=== PATIENT | female | born 1980 | race Caucasian/White ===

== ENCOUNTER → 2022-12-28 | Outpatient (CLI) | payer OTHER, SELFPAY ==
[2023-01-02 09:09] LABS: HPV APTIMA, High Risk Negative (Negative)
== END | disposition home or self-care (01) ==
LOC: LABSPEC 16:00
PROVIDERS: PCP Family Medicine; Referring Provider Obstetrics & Gynecology; Visit Provider Obstetrics & Gynecology
DX: Z12.4 Encounter for screening for malignant neoplasm of cervix (principal)
CPT/HCPCS: 87624; 88175; G0145

== ENCOUNTER → 2023-01-01 | Outpatient (CLI) | payer OTHER, SELFPAY ==
--- NOTE | 2023-01-01 13:01 | US_ITS ---
STUDY: ULTRASOUND OF THE FEMALE PELVIS - LIMITED REASON FOR EXAM: Female, 42 years old abnormal bleeding TECHNIQUE: Transabdominal and Transvaginal TECHNICAL QUALITY: Adequate. COMPARISON: None. FINDINGS: The uterus is anteverted and is in a midline position. The uterus measures 9.1 x 5.8 x 4.3 cm. Normal uterine cervix. The endometrium measures between 4.9 and 5.5 mm in thickness, and is hyperechoic. There is no demonstrated endometrial mass. Seat Joiner notes at least one fibroid measuring 1.9 cm. There may be other fibroids but with the interface artifact, accurate measurements of any other fibroid could not be obtained. The right ovary measures 3.8 x 1.9 x 1.7 cm. There is a simple 1.3 cm cyst. . There is normal arterial and normal venous vascularity. The left ovary measures 2.9 x 2.3 x 1.6 cm. There is no left ovarian cyst or ovarian mass. There is no visualized left adnexal mass or complex lesion. There is normal arterial and normal venous vascularity. There is no fluid in the cul-de-sac. Bladder is sonographically normal US/Pelvic (Non ) IMPRESSION: Small uterine fibroid, otherwise unremarkable uterus, no suspicious endometrial abnormalities identified. Simple right ovarian cyst, no specific follow-up needed Electronically Signed: Barrett Valdez MD at 15:38 EDT ,
--- NOTE | 2023-01-01 13:01 | US_ITS ---
STUDY: ULTRASOUND OF THE FEMALE PELVIS - LIMITED REASON FOR EXAM: Female, 42 years old abnormal bleeding TECHNIQUE: Transabdominal and Transvaginal TECHNICAL QUALITY: Adequate. COMPARISON: None. FINDINGS: The uterus is anteverted and is in a midline position. The uterus measures 9.1 x 5.8 x 4.3 cm. Normal uterine cervix. The endometrium measures between 4.9 and 5.5 mm in thickness, and is hyperechoic. There is no demonstrated endometrial mass. Power Brake Rebuilder notes at least one fibroid measuring 1.9 cm. There may be other fibroids but with the interface artifact, accurate measurements of any other fibroid could not be obtained. The right ovary measures 3.8 x 1.9 x 1.7 cm. There is a simple 1.3 cm cyst. . There is normal arterial and normal venous vascularity. The left ovary measures 2.9 x 2.3 x 1.6 cm. There is no left ovarian cyst or ovarian mass. There is no visualized left adnexal mass or complex lesion. There is normal arterial and normal venous vascularity. There is no fluid in the cul-de-sac. Bladder is sonographically normal US/Transvaginal Non- IMPRESSION: Small uterine fibroid, otherwise unremarkable uterus, no suspicious endometrial abnormalities identified. Simple right ovarian cyst, no specific follow-up needed Electronically Signed: Barrett Valdez MD at 15:38 EDT ,
[2023-01-01 13:54] LABS: Absolute Lymphocyte Count 3.05 X10^3/uL (0.83-4.51); Absolute Neutrophil Count 4.7 X10^3/uL (2.0-7.7); Basophil# 0.08 X10^3/uL; Eosinophil# 0.07 X10^3/uL; Eosinophils% 0.8 % (0-5); Hematocrit 40.4 % (37-47); Hemoglobin 13.9 g/dL (12.0-15.0); Lymphocyte # 3.05 X10^3/ul (0.83-4.51); Lymphocyte % 36.3 % (19-41); Mean Corp Hgb Conc 34.4 g/dL (32-36); Mean Corpuscular Hgb 30.4 pg (27.0-32.0); Mean Corpuscular Volume 88.4 fL (81-99); Mean Platelet Vol. 9.8 fl (6.2-12.0); Monocyte# 0.51 X10^3/uL; Monocyte% 6.1 % (0-10); NRBC Flagged by Analyzer 0 % (0-5); Neutrophil # 4.67 X10^3/uL (2.7-7.7); Neutrophil % 55.4 % (47-70); Platelet Count 410 K/mm3 (150-450); RBC Distribution Width CV 12.7 % (11.6-14.6); RBC Distribution Width SD 41.2 fl (35.1-43.9); Red Blood Count 4.57 M/mm3 (4.2-5.4); White Blood Count 8.4 K/mm3 (4.4-11.0)
[2023-01-01 14:32] LABS: Thyroid Stim Hormone (TSH) 2.82 uIU/mL (0.358-3.74)
== END | disposition home or self-care (01) ==
PROVIDERS: PCP Family Medicine; Referring Provider Obstetrics & Gynecology; Visit Provider Obstetrics & Gynecology
DX: N93.9 Abnormal uterine and vaginal bleeding, unspecified (principal)
CPT/HCPCS: 36415; 76830; 76856; 84443; 85025

== ENCOUNTER → 2023-01-16 | Outpatient (CLI) | payer OTHER, SELFPAY ==
--- NOTE | 2023-01-16 | EMB_PTH ---
PATIENT: FRIDA TORRE LOC: [facility] U#:[id number] AGE/SX: 42/F ROOM: RE01/16/[address]: Dr. Yolis Dyer DO : 1980 BED: DIS: 01/16/2023 SPEC #: [id number] RECD: 01/16/23 16:21 STATUS: WAYNE REDaria #: [id number] JASWANT: 01/16/23 00:[address]: Yolis Dyer DEPT: SURGICAL PATHOLOGY RECD BY: Ramirez Bonilla ENTERED: 01/17/23 09:17 SP TYPE: ENDOM BX/C REINA DR: Dr. Paul Moreira MD Tissues: Endometrium, NOS Procedures: Surgery Specimen Level IV HEADER OPERATION: Endometrial biopsy PRE-OP DIAGNOSIS: Abnormal uterine bleeding TISSUE SUBMITTED: Endometrial lining MICROSCOPIC DIAGNOSIS Endometrium, biopsy: Mildly disordered, weakly proliferative endometrium. Rare fragment of squamous metaplastic epithelium. AM:karolyn 01/18/2023 MICROSCOPIC DESCRIPTION Slides are reviewed. GROSS DESCRIPTION Received is one container labeled with the patient's name and not further designated. The specimen consists of light rajput mucoid material aggregating to 1.5 x 0.6 x <0.1 cm. The specimen is totally submitted in one cassette. / AM:karolyn 01/17/2023 TC:5 CPT: 35134
== END | disposition home or self-care (01) ==
LOC: LABSPEC 16:45
PROVIDERS: PCP Family Medicine; Referring Provider Obstetrics & Gynecology; Visit Provider Obstetrics & Gynecology
DX: N93.9 Abnormal uterine and vaginal bleeding, unspecified (principal)
CPT/HCPCS: 88305

== ENCOUNTER 2023-03-06 08:44 | Day surgery (SDC) | payer OTHER, SELFPAY ==
--- NOTE | 2023-02-22 10:37 | EKG12_ITS ---
Test Reason : PRE-OP Blood Pressure : / mmHG Vent. Rate : 065 BPM Atrial Rate : 065 BPM P-R Int : 182 ms QRS Dur : 086 ms QT Int : 424 ms P-R-T Axes : 065 032 049 degrees QTc Int : 440 ms Normal sinus rhythm Possible Left atrial enlargement Borderline ECG Confirmed by FABIENNE BELL, TROY ([id number]), assignment desk editor FANNY ONEAL ([id number]) on 02/23/2023 9:12:37 AM Referred By: Yolis Dyer Confirmed By:TROY LOVING MD
[2023-02-22 11:38] LABS: Partial Thromboplast Time 27.2 Seconds (24.1-36.2); Prothrombin Time (Protime)PT. 13.1 SECONDS (11.7-14.9)
[2023-02-22 12:00] LABS: AST(SGOT) 15 U/L (15-37); Alanine Aminotransfer ALT/SGPT 21 U/L (13-56); Albumin, Serum 3.6 g/dL (3.2-5.0); Alkaline Phosphatase 72 U/L (45-117); Anion Gap 5 (5-15); BUN 9 mg/dL (7-18); BUN/Creat Ratio 9.6 RATIO (10-20); Bilirubin, Direct 0.13 mg/dL (0.00-0.30); Calcium,Total 8.8 mg/dL (8.5-10.1); Chloride 104 mmol/L (98-107); Creatinine, Serum 0.94 mg/dL (0.55-1.02); EST Glomerular Filtration Rate 69 mL/min (>60); Est Glom Filt Rate - Afr Amer 83 mL/min (>60); Globulin 3.6 g/dL (2.2-4.2); Glucose 77 mg/dL (74-106); Magnesium 2.5 mg/dL (1.6-2.6); Potassium 3.3 mmol/L (3.5-5.1); Protein, Total 7.2 g/dL (6.4-8.2); Sodium Level 139 mmol/L (136-145)
[2023-03-06] VITALS (17 sets, daily range): BP systolic 109–138; BP diastolic 60–89; PULSE 54–102; RESP 15–95; TEMP 36.1–37.1; O2SAT 95–100; BMI 34.0
[2023-03-06] MEDS: Magnesium 1 GM over 15 mins IV (09:00)
[2023-03-06 09:26] LABS: Bedside Glucose 130 mg/dL (74-106)
[2023-03-06] MEDS: Lactated Ringers 1,000 ML 40 ML IV ×2 (09:34→11:31)
[2023-03-06] MEDS: dexAMETHasone 4 MG/ML Vial 8 MG IV (09:37)
[2023-03-06] MEDS: Phenazopyridine 95 MG Tablet 190 MG PO (09:38)
[2023-03-06] MEDS: Gabapentin 600 MG Tablet PO (09:39)
[2023-03-06] MEDS: Acetaminophen 500 MG Tablet 1000 MG PO ×3 (09:39→23:16)
[2023-03-06] MEDS: Celecoxib 200 MG Capsule 400 MG PO (09:39)
--- NOTE | 2023-03-06 09:39 | PCM.HP.BLA ---
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: No Is patient in pain?: No Allergies No Known Allergies Allergy (Verified 02/21/23 16:02) Medications buspirone 15 mg tablet 15 mg PO BID 12/12/22 [History Confirmed 02/21/23] hydrochlorothiazide 50 mg tablet 50 mg PO DAILY 12/12/22 [History Confirmed 02/21/23] magnesium oxide 500 mg capsule 500 mg PO DAILY 12/12/22 [History Confirmed 02/21/23] metoprolol succinate 100 mg tablet,extended release 24 hr 100 mg PO DAILY 12/12/22 [History Confirmed 02/21/23] naltrexone 8 mg-bupropion 90 mg tablet,extended release (Contrave) 2 tab PO BID 12/12/22 [History Confirmed 02/21/23] psyllium husk 0.4 gram capsule (Daily Fiber) 0.4 g PO DAILY 12/12/22 [History Confirmed 02/21/23] rosuvastatin 5 mg tablet (Crestor) 5 mg PO DAILY 12/12/22 [History Confirmed 02/21/23] melatonin 12 mg tablet 12 mg PO QHS 02/20/23 [History Confirmed 02/21/23] zolpidem 12.5 mg tablet,extended release,multiphase (Ambien CR) 12.5 mg PO QHS PRN insomnia 02/20/23 [History Confirmed 02/21/23] Post menopausal: No Patient : No : No PFSH Medical History Abnormal mammogram Abnormal Pap smear of cervix Alcohol use Anemia Anxiety Back pain Easy bruising Former smoker High cholesterol Hypertension Migraine headache Normal Holter exam Wears glasses Surgical History S/P breast augmentation S/P endometrial ablation S/P LASIK (laser assisted in situ keratomileusis) S/P left knee surgery S/P removal of ovarian cyst S/P tonsillectomy and adenoidectomy S/P tubal ligation Family History Mother Hypertension Hyperlipidemia CVA (cerebral vascular accident)Father Hypertension Diabetes Hyperlipidemia CVA (cerebral vascular accident)Grandfather COPD (chronic obstructive pulmonary disease) Testicular cancer DiabetesGrandmother Alzheimer disease Social History Smoking Status: Former smoker alcohol intake: current details: occasionally substance use type: does not use caffeine: Yes what type of physical activity do you participate in: walking and weight training frequency: 3-4 times per week seatbelt use: always do you feel safe at home: Yes additional social history: -Art HPI TRH poss. cysto Details: FRIDA TORRE is a 42 year old who presents for a preoperative exam. She is scheduled for a total robotic hysterectomy, bilateral salpingectomy, cystoscopy. The uterus is anteverted and is in a midline position.? The uterus measures 9.1 x 5.8 x 4.3 cm.? Normal uterine cervix.? The endometrium measures between 4.9 and 5.5 mm in thickness, and is hyperechoic.? There is no demonstrated endometrial mass. Motion Graphics Artist notes at least one fibroid measuring 1.9 cm. There may be other fibroids but with the interface artifact, accurate measurements of any other fibroid could not be obtained. The right ovary measures 3.8 x 1.9 x 1.7 cm.? There is a simple 1.3 cm cyst. .? There is normal arterial and normal venous vascularity. The left ovary measures 2.9 x 2.3 x 1.6 cm.? There is no left ovarian cyst or ovarian mass.? There is no visualized left adnexal mass or complex lesion.? There is normal arterial and normal venous vascularity. There is no fluid in the cul-de-sac. Bladder is sonographically normal US/Transvaginal Non- IMPRESSION: Small uterine fibroid, otherwise unremarkable uterus, no suspicious endometrial abnormalities identified. ? Simple right ovarian cyst, no specific follow-up needed She continues to have q 2 week menses that are sometimes with clots. She continues to request hysterectomy for definitive treatment. She had 2 prior vaginal deliveries and BMI of 34 (200lbs). She consents to an EMB was benign. History 2 Elective abortions Hx Para 2 Spontaneous abortions Hx # Term Pregnancies Ectopic pregnancies Hx # Pregnancies Multiple births # of living children Past Pregnancies Del. Date Name GA/Weeks Outcome Route Bth Weight [facility] F[facility] Unknown Jacqueline Unknown Calysta ROS Const ROS Unobtainable: All systems reviewed & are unremarkable except as noted in H Resp Resp: Reports system reviewed and no additional complaints, except as documented; Denies cough GI GI: Reports as per HPI Psych Psych: Reports system reviewed and no additional complaints, except as documented Exam Const General: cooperative, healthy appearing, comfortable and no acute distress Resp Effort & Inspection: normal respiratory effort Skin General: no rashes or lesions noted Psych Appearance: grossly normal Speech and Movement: speech and movement normal Coding Level of Care Code Off vis,est,level 4 Diagnoses Abnormal uterine bleeding N93.9 Assessment and Plan Assessment and Plan (1) Abnormal uterine bleeding: Status: Acute Comment: EMB, benign Plan: After discussing the patient's diagnosis and treatment plan options, patient wishes to proceed with surgical management. I have discussed with the patient the risks, benefits, and alternatives of the procedure which include but are not limited to risks of anesthesia, bleeding, infection, possible damage to bowel, bladder, or surrounding vasculature which could lead to additional surgery to evaluate any complications. Patient agrees to procedure and wishes to proceed. ACOG/uptodate references given for additional information regarding procedure. plan for total robotic hysterectomy, bilateral salpingectomy, cystoscopy.
--- NOTE | 2023-03-06 09:46 | DCINST_ITS ---
Discharge Instructions Diet Discharge Diet: No restrictions Activity May resume sexual activity in: 6 weeks Weight Bearing Status: Full weight bearing Dressing / Incision Call your doctor if your incision/area has: Continuous Slow Oozing, Sudden Increased Bleeding, Increased Pain/ Swelling, Increased Redness and Foul Smelling Discharge Call your doctor if you observe: Fever of 101 or Higher, Using more than 1 pad per hour, Shortness of breath, Chest pain and Uncontrolled pain Suture Line Care: Avoid Pulling/Pushing and Avoid Pinching/Bending Remove Dressing in: 1 week (if present) Cleanse incision/area with: Soap & Water and Keep Dressing Clean & Dry Follow Up Care Please Follow Up With: Yolis Dyer DO When: Call to make an appointment with your doctor for a postop visit in 2 and 6 weeks Test Results: Test results from this visit will be discussed in further detail at your follow- up appointment, if applicable. Discharge Plan Admission Primary Reason for Your Visit: hysterectomy Attending Provider: Yolis Dyer Primary Care Provider: Paul Moreira Discharge Orders/Prescriptions Prescriptions: New ibuprofen 800 mg tablet 800 mg PO Q8H PRN (Reason: pain) Qty: 30 0RF oxycodone-acetaminophen [Percocet] 5-325 mg tablet 1 tab PO Q4H PRN (Reason: pain) 7 Days Qty: 30 0RF Rx Instructions: 1-2 tabs q 4 hrs as needed for pain Continued metoprolol succinate 100 mg tablet extended release 24 hr 100 mg PO DAILY hydrochlorothiazide 50 mg tablet 50 mg PO DAILY rosuvastatin [Crestor] 5 mg tablet 5 mg PO DAILY buspirone 15 mg tablet 15 mg PO BID psyllium husk [Daily Fiber] 0.4 gram capsule 0.4 g PO DAILY magnesium oxide 500 mg capsule 500 mg PO DAILY melatonin 12 mg tablet 12 mg PO QHS zolpidem [Ambien CR] 12.5 mg tablet,ext release multiphase 12.5 mg PO QHS PRN (Reason: insomnia) Held Contrave 8-90 mg tablet extended release 2 tab PO BID Hold Instructions: Resume on 03/14/23. stop taking after surgery and resume when not using percocet Referrals / Follow Up: Paul Moreira MD [Primary Care Provider] - Disposition Disposition (needs filled in before D/C Order can be placed): Home, Self Care
[2023-03-06] MEDS: Cefazolin 2 GM in 0.9% Normal Saline 100 ML IV (10:40)
--- NOTE | 2023-03-06 10:40 | HYST_PTH ---
PATIENT: FRIDA TORRE LOC: [facility] [place] U#:[id number] AGE/SX: 42/F ROOM: RE03/06/[address]: Dr. Yolis Dyer DO : 1980 BED: DIS: 03/07/2023 SPEC #: [id number] RECD: 03/06/23 13:14 STATUS: WAYNE KEVIN #: [id number] JASWANT: 03/06/23 10:[address]: Yolis Dyer DEPT: SURGICAL PATHOLOGY RECD BY: Rosy Goncalves ENTERED: 03/06/23 13:25 SP TYPE: HYSTERECT OTHR DR: Dr. Paul Moreira MD Tissues: Uterus, NOS Procedures: Surgery Specimen Level V HEADER OPERATION: ERAS, lap robotic hysterectomy, cystoscopy PRE-OP DIAGNOSIS: Abnormal uterine bleeding TISSUE SUBMITTED: Cervix, uterus and bilateral fallopian tubes MICROSCOPIC DIAGNOSIS Cervix, uterus, bilateral fallopian tubes, hysterectomy and bilateral salpingectomy: Cervix - chronic cystic cervicitis with squamous metaplasia. Endometrium - secretory endometrium. Myometrium - intramural and subserosal leiomyomas (largest measuring 2.0 cm in greatest dimension. Bilateral fallopian tubes - focal hematosalpinx. SJ:karolyn 03/07/2023 MICROSCOPIC DESCRIPTION Slides are reviewed. GROSS DESCRIPTION Received in fixative is one container labeled with the patient's name and designated cervix, uterus and bilateral fallopian tubes. The specimen consists of a hysterectomy specimen consisting of uterus with cervix and attached bilateral fallopian tubes. The uterus with cervix weighs 107 gm and measures 9.0 x 7.0 x 4.5 cm. A minute subserosal nodule is noted measuring 0.2 cm in greatest dimension. The serosal surface is rajput, glistening. The ectocervical mucosa is unremarkable. The external os is oval and patulous in contour. The endocervical canal measures 3.5 cm in length and the endocervical mucosa is rajput, glistening and unremarkable. Sections of the cervix reveal a few cysts filled with mucoid material. The triangular endometrial cavity measures 4.5 cm in length and 3.0 cm in width. The endometrium is rajput, glistening without any mass lesion and measures 0.1 cm in thickness. The uterine wall measure sup to 2.2 cm in thickness. Sections of the uterine wall reveal two intramural nodular masses measuring 0.4 to 2.0 cm in greatest dimension and one subserosal nodule measuring 0.2 cm in greatest dimension. The right fallopian tube measures 7.0 cm in length and up to 1.0 cm in diameter. The fimbrial end is identified. The fallopian tube is interrupted in the middle consistent with previous tubal occlusion. The proximal portion of fallopian tube shows dilated lumen measuring 0.5 cm in diameter and filled with hemorrhagic fluid. Sections do not reveal any mass lesion. The left fallopian tube is similar appearance to right and measures 6.0 cm in length and 1.0 cm in diameter. Sections of the left fallopian tube also reveal dilated lumen. The proximal portion of the left fallopian tube also shows dilated lumen filled with bloody fluid measuring 0.4 cm in diameter. Disc Sander sections are submitted in nine cassettes as follows: 1??anterior cervix, 2 - posterior cervix, 3 & 4 - anterior uterine wall, 5 & 6 - posterior uterine wall, largest nodular mass, 7 - nodular masses, 8 - right fallopian tube, 9 - left fallopian tube. / SJ:rg 03/06/2023 TC:1 CPT: 91754
[2023-03-06] MEDS: Bupivacaine 0.25% 30 ML Vial (11:16)
[2023-03-06] MEDS: Ondansetron 4 MG/2 ML Vial IV (11:36)
--- NOTE | 2023-03-06 12:37 | OP.PCM_ITS ---
Problems Associated Problem List Diagnoses (1) Abnormal uterine bleeding: Report of Operation Date of Procedure: 03/06/23 Pre-Operative Diagnosis: menorrhagia Post-Operative Diagnosis: menorrhagia Surgery/Procedure Performed:: total robotic hysterectomy, bilateral salpingectomy, cystoscopy Description of Surgical Findings:: normal appearing uterus, fallopian tubes, and some simple appearing cysts on the right ovary measuring less than 1 cm. Positive ureteral jets from ureters on cystoscopy. Surgeon: Yolis Dyer production cloth cutter: Manda Church Type of Anesthesia: General Anesthesiologist: Charles Mcdonald Specimen's removed: uterus, cervix ,bilateral fallopian tubes Drains: noen Estimated Blood Loss (mL): 50cc Description of Procedure: Preoperative diagnosis:[ ] Postoperative diagnosis: [ ] Procedure: Total robotic hysterectomy [bilateral salpingooophorectomy] and cystoscopy Reason for surgery: This is a 42-year-old G2, P2 who presented to my office with history of menorrhagia and pelvic pain. She states that she has been complaining about this to her past PRECISION HONER for many years and nothing was done about it. 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 She is requesting a total hysterectomy. Based on her BMI she is an excellent candidate for robotic hysterectomy. The planned procedure is for a total robotic hysterectomy, bilateral salpingectomy, and cystoscopy the risks benefits and alternatives were discussed with the patient the patient had a clear understanding of the procedure and a consent form was signed. Procedure: The patient was placed in the dorsal low lithotomy position and prepped and draped in the normal sterile fashion both abdominally and in the perineum. Her legs were placed in stirrups a Kumar catheter was inserted into the urethra without difficulty. A weighted speculum was placed in the vagina and a single- tooth tenaculum was used to grasp the anterior lip of the cervix. An advincula uterine manipulator was inserted through the cervix without complication. It was then tied into place at the 2 and 10:00 locations on the cervix. Gloves were changed and attention was turned towards the abdomen. Approximately 23 cm above the pubic symphysis in the midline, and after Marcaine injection, a 8 mm incision was made. An 8 mm trocar was inserted through the laparoscope, then inserted into the abdomen under direct visualization using the laparoscope. Good abdominal placement was noted and no complications were appreciated. An air seal device was utilized to create pneumoperitoneum. At 12 cm lateral to the midline on the left and right sides 8 mm accessory ports were placed. Next a left upper quadrant 8 mm assistant facility manager port site was placed. The patient was placed in steep Trendelenburg position. The robot was docked. The hysterectomy was initiated first by taking down the round ligament on each side using the vessel sealer device. The right fallopian tube was grasped with the ProGrasp device and the underlying mesosalpinx was cauterized and cut with the vessel sealer device to the level of the uterine cornua. Same procedure was performed on the opposite side. The broad ligament was then and taken down using the vessel sealer device. Next the bladder flap was taken down without complication. This was done using monopolar cautery to the level of the cervical vaginal junction. After the bladder flap was created, uterine vessels were then isolated and cauterized using the vessel sealer device and EndoShears. At this point the uterine vessels were taken down further starting from the ascending branch, dissecting along the edges of the cervix to the level of the cervical vaginal junction with hemostasis appreciated. The cervical vaginal junction was then using monopolar cautery in a circumferential pattern across the superior aspect of the cervix. The specimen was delivered through the vagina and sent to pathology. The remaining vaginal cuff was then closed using a V lock suture. This was performed in a running technique. Excellent hemostasis was obtained and good closure was noted. Irrigation was then performed. All operative sites were noted to be hemostatic. A cystoscopy was performed with a 70 degree cystoscope through the urethra into the bladder without complication. The bladder was instilled with approximately 250 cc of normal saline. Intraoperative images were made. Ureteral orifices and jets were identified. No suture material was appreciated in the bladder. The bladder was then drained and cystoscope was removed. The abdominal cavity was again examined using the laparoscope after the robot was undocked. All operative sites were noted to be hemostatic. The trochars were removed under direct visualization without complication and pneumoperitoneum was reduced. At this point the skin was then closed using 4-0 Monocryl subcuticular stitch and sealed with surgical glue. The patient tolerat ed the procedure well sponge lap and needle counts were correct x2 the patient was taken to the recovery room in stable condition. Complications none Admit VTE Documentation VTE Present on Admission: Yes VTE Mechan Device Prophylaxis: SCD's VTE Pharm Prophylaxis ordered?: No Multi Select Codes Urinary/Genital Urinary/Genital CPT Codes: 38112 Cystoscopy and 65878 TLH+BS/O <250gr uterus
[2023-03-06] MEDS: Lactated Ringers @ 70 MLS/HR 70 ML IV (15:16)
[2023-03-06] MEDS: Ondansetron 4 MG/2 ML Vial IM (16:30)
[2023-03-06] MEDS: Morphine 4 MG/ML Syringe IM (16:42)
[2023-03-06] MEDS: Ketorolac 30 MG/ML Syringe IV ×2 (18:50→23:15)
[2023-03-06] MEDS: Ondansetron ODT 4 MG Tablet PO (20:35)
[2023-03-06] MEDS: busPIRone 15 MG TABLET PO (23:06)
[2023-03-06] MEDS: Docusate Sodium 100 MG Capsule PO (23:06)
[2023-03-06] MEDS: Atorvastatin Calcium 10 MG Tablet PO (23:06)
[2023-03-06] MEDS: Zolpidem Tartrate 5 MG Tablet PO (23:15)
[2023-03-06] MEDS: 0.9% Saline Lock 10 ML Syringe IV (23:17)
[2023-03-07 02:49] VITALS: BP 118/72; PULSE 90; RESP 16; TEMP 36.6; O2SAT 95
[2023-03-07] MEDS: Ondansetron ODT 4 MG Tablet PO ×2 (02:55→09:48)
[2023-03-07] MEDS: oxyCODONE 5 MG Tablet PO ×2 (03:22→09:47)
[2023-03-07 06:51] VITALS: BP 118/77; PULSE 79; RESP 18; TEMP 37.1; O2SAT 97
[2023-03-07] MEDS: Acetaminophen 500 MG Tablet 1000 MG PO (06:52)
[2023-03-07] MEDS: 0.9% Saline Lock 10 ML Syringe IV (06:53)
[2023-03-07] MEDS: Ketorolac 30 MG/ML Syringe IV (06:53)
[2023-03-07 07:02] LABS: Hematocrit 36.7 % (37-47); Hemoglobin 12.1 g/dL (12.0-15.0); Mean Corpuscular Hgb 29.3 pg (27.0-32.0); Mean Corpuscular Volume 88.9 fL (81-99); Mean Platelet Vol. 9.8 fl (6.2-12.0); Platelet Count 349 K/mm3 (150-450); RBC Distribution Width CV 12.7 % (11.6-14.6); Red Blood Count 4.13 M/mm3 (4.2-5.4); White Blood Count 13.1 K/mm3 (4.4-11.0)
--- NOTE | 2023-03-07 08:21 | PCM.PN.OB ---
Subjective Subjective Patient doing well without complaints. Tolerating PO. Ambulating with assistance and voiding without difficulty. Denies chest pain, shortness of breath, calf pain/swelling, fevers, chills, lightheadedness. Objective Data Objective Data Vital Signs: Vital Signs Temp Pulse Resp BP Pulse Ox O2 Del Method O2 Flow Rate 98.7 F 79 18 118/77 97 Room Air 4 03/07/23 06:51 03/07/23 06:51 03/07/23 06:51 03/07/23 06:51 03/07/23 06:51 03/07/23 06:51 03/06/23 15:00 Oxygen Flow Rate (L/min) 4 Oxygen Delivery Method Room Air Weight: 198 lb 9.6 oz Body Mass Index (BMI) 34.0 Intake & Output: Intake and Output for Last 24 Hours 03/05/23 03/06/23 03/07/23 23:59 23:59 23:59 Intake Total 3212 / 3212 Output Total 475 / 475 200 / 200 Balance 2737 / 2737 -200 / -200 Lab / Micro Data 03/07/23 06:30 02/22/23 10:53 Labs: Laboratory Results - last 24 hr 03/06/23 09:08: POC Glucose 130 H 03/07/23 06:30: WBC 13.1 H, RBC 4.13 L, Hgb 12.1, Hct 36.7 L, MCV 88.9, MCH 29.3, MCHC 33.0, RDW Std Deviation 41.0, RDW Coeff of Christine 12.7, Plt Count 349, MPV 9.8 ROS Constitutional Constitutional: Denies chills, fatigue, fever(s), poor appetite or weakness Eyes Eyes: Denies blurry vision, change in vision, seeing flashes or spots in vision ENT HEENT: Denies dizziness, headache(s), loss taste/smell or sore throat Cardiovascular Cardiovascular: Denies chest pain, dizziness, dyspnea, irregular heart rhythm, palpitations or rapid heart rate Respiratory/Chest Respiratory/Chest: Denies chest tightness, cough, dyspnea or breast pain Gastrointestinal Gastrointestinal: Denies abdominal pain, constipation or vomiting Genitourinary Genitourinary: Denies dysuria or flank pain Musculoskeletal Musculoskeletal: Denies difficulty walking, joint pain, limited range of motion or numbness Neurologic Neurologic: Denies abnormal movements, abnormal speech, dizziness, numbness, seizure-like activity or syncope Psychiatric Psychiatric: Denies anxiety, behavioral changes, change in appetite, confusion, depression or suicidal thoughts Physical Exam Const alert, oriented x3 and no apparent distress General Appearance: cooperative and comfortable Resp normal respiratory effort Cardio regular rate GI normal to inspection, nondistended, normoactive bowel sounds Palpation: soft Back/Spine no CVA tenderness and thoraco-lumbar ROM normal Extremity normal to inspection, no clubbing, cyanosis or edema, no calf tenderness and no pedal edema Psych mental status grossly normal, thought process normal, cooperative, affect normal, speech normal, activity/motor behavior normal, denies homicidal ideation and denies suicidal ideation Assessment & Plan (1) Status post hysterectomy: PLAN: patient is s/p robotic hysterectomy POD 1 1. routine ERAS protocol postop care- increase ambulation, encourage oral intake and oral control of pain. scds for dvt prophylaxis, patient stable for discharge to home.
--- NOTE | 2023-03-07 09:15 | PHA.DC_ITS ---
Pharmacy [facility] Pharmacy Service has performed discharge medication reconciliation and counseling for this patient. Patient to hold Contrave while taking Percocet. 1. IBUPROFEN 800MG PO Q8H PRN PAIN 2. OXYCODONE/ACETAMINOPHEN 5/325MG 1-2T PO Q4H PRN PAIN 3. PROMETHAZINE 12.5MG PO Q6H The patient's discharge medication list was reviewed for discrepancies and discrepancies were resolved. The patient was counseled on the following discharge medications and changes in medications for homegoing were reviewed. The Reason for Use, instructions for use, and potential side effects were reviewed for all new medications. The patient's questions regarding all of their medications were answered. The patient was able to verbally demonstrate an understanding of their discharge medications. Patient counseled by instructor adjunct pharmacy technicianMirna. Medications at Discharge Home Medications buspirone 15 mg tablet 15 mg PO BID 12/12/22 hydrochlorothiazide 50 mg tablet 50 mg PO DAILY 12/12/22 magnesium oxide 500 mg capsule 500 mg PO DAILY 12/12/22 metoprolol succinate 100 mg tablet,extended release 24 hr 100 mg PO DAILY 12/12/22 naltrexone 8 mg-bupropion 90 mg tablet,extended release (Contrave) 2 tab PO BID 12/12/22 psyllium husk 0.4 gram capsule (Daily Fiber) 0.4 g PO DAILY 12/12/22 rosuvastatin 5 mg tablet (Crestor) 5 mg PO QHS 12/12/22 melatonin 12 mg tablet 12 mg PO QHS 02/20/23 zolpidem 12.5 mg tablet,extended release,multiphase (Ambien CR) 12.5 mg PO QHS PRN insomnia 02/20/23 ibuprofen 800 mg tablet 800 mg PO Q8H PRN pain #30 tabs 03/06/23 oxycodone-acetaminophen 5 mg-325 mg tablet (Percocet) 1 tab PO Q4H PRN pain 7 days #30 tabs 03/06/23 promethazine 12.5 mg tablet 12.5 mg PO Q6H #30 tabs 03/07/23
[2023-03-07 09:47] VITALS: PULSE 75
[2023-03-07] MEDS: busPIRone 15 MG TABLET PO (09:47)
[2023-03-07] MEDS: hydroCHLOROthiazide 25 MG Tablet 50 MG PO (09:47)
[2023-03-07] MEDS: Metoprolol(XL)Succ 100 MG Tablet PO (09:47)
[2023-03-07] MEDS: Docusate Sodium 100 MG Capsule PO (09:47)
[2023-03-07 10:00] VITALS: BP 126/82; PULSE 75; RESP 16; TEMP 37; O2SAT 99
== END 2023-03-07 10:45 | disposition home or self-care (01) ==
LOC: SDC 08:51 → MS3 03-07 10:36
PROVIDERS: Anesthesiology; PCP Family Medicine; Referring Provider Obstetrics & Gynecology; Visit Provider Obstetrics & Gynecology
PROC: 0UT94ZZ Resection of Uterus, Percutaneous Endoscopic Approach (ICD-10-PCS; CPT 58571; principal; 2023-03-06 10:20)
DX: D25.0 Submucous leiomyoma of uterus (principal); D25.1 Intramural leiomyoma of uterus; N83.6 Hematosalpinx; N87.9 Dysplasia of cervix uteri, unspecified; N72 Inflammatory disease of cervix uteri; I10 Essential (primary) hypertension; E78.00 Pure hypercholesterolemia, unspecified; Z79.899 Other long term (current) drug therapy; Z87.891 Personal history of nicotine dependence
CPT/HCPCS: 58571; 00840; 36415; 80048; 80076; 82962; 83735; 85027; 85610; 85730; 86850; 86900; 86901; 88307; 93005; 94668; 99252; J7120; A4216; C1758; G0463; J2405; J3475

== ENCOUNTER → 2023-03-21 | Outpatient (CLI) | payer OTHER, SELFPAY | END | disposition home or self-care (01) | PROVIDERS: PCP Family Medicine; Visit Provider Obstetrics & Gynecology | DX: R30.0 Dysuria (principal) | CPT/HCPCS: 87086; 87088 ==

== ENCOUNTER → 2023-05-29 | Outpatient (CLI) | payer OTHER, SELFPAY ==
[2023-05-29 12:09] LABS: Hemoglobin A1c 4.8 % (3.8-5.6)
== END | disposition home or self-care (01) ==
PROVIDERS: PCP Family Medicine; Referring Provider Obstetrics & Gynecology; Visit Provider Obstetrics & Gynecology
DX: N73.9 Female pelvic inflammatory disease, unspecified (principal)
CPT/HCPCS: 36415; 83036

== ENCOUNTER 2024-09-17 08:17 | Day surgery (SDC) | payer BC, SELFPAY ==
[2024-09-17] VITALS (7 sets, daily range): BP systolic 95–99; BP diastolic 69–80; PULSE 78–86; RESP 14–16; TEMP 36.1–36.4; O2SAT 99–100; BMI 27.2
--- NOTE | 2024-09-17 08:56 | PRE.ANES_ITS ---
ASA Classification* ASA Classification ASA Classification: 2 Assessment & Plan Anesthesia* Anesthesia Assessment Anesthesia Assessment: Discussed sedation and/or anesthesia options, risks, benefits, and alternatives with patient/parents/legal guardian/POA. Questions invited. The patient/parents/legal guardian/POA seems to understand and agrees to proceed with anesthesia plan. Reviewed the physical assessment, medical history, allergy history and patient home medications list prior to surgery/procedure/anesthetic and documented any changes. Performed airway and anesthesia risk assessments. Anesthesia Type Anesthesia Type: MAC History Source History Obtained from:: Patient and Chart Anesthesia Focused Assessment* Temperature: 97 F Pulse Rate: 86 Blood Pressure: 99/80 Respiratory Rate: 16 Pulse Ox: 100 Oxygen Delivery Method: Room Air Airway Assessment Mouth opens: >3 cm Mallampati Score: II Teeth Condition: Chipped/Broken (Patient has right upper molar that is broken. It is tight.) and Missing (Patient has couple missing teeth.) Neck Range of motion (ROM): Full ROM Focused Labs Anesthesia Preop lab: CBC WBC 13.1 K/mm3 (4.4-11.0) H 03/07/23 06:30 3 RBC 4.13 M/mm3 (4.2-5.4) L 03/07/23 06:30 03/07/23 Hgb 12.1 g/dL (12.0-15.0) 03/07/23 06:30 03/07/23 Hct 36.7 % (37-47) L 03/07/23 06:30 03/07/23 Plt Count 349 K/mm3 (150-450) 03/07/23 06:30 03/07/23 CHEMISTRY Potassium 3.3 mmol/L (3.5-5.1) L 02/22/23 10:53 02/22/23 Sodium 139 mmol/L (136-145) 02/22/23 10:53 02/22/23 Magnesium 2.5 mg/dL (1.6-2.6) 02/22/23 10:53 02/22/23 BUN 9 mg/dL (7-18) 02/22/23 10:53 02/22/23 Creatinine 0.94 mg/dL (0.55-1.02) 02/22/23 10:53 02/22/23 Glucose 77 mg/dL (74-106) 02/22/23 10:53 02/22/23 POC Glucose 130 mg/dL (74-106) H 03/06/23 09:08 03/06/23 TSH 2.82 uIU/mL (0.358-3.74) 01/01/23 12:51 COAG PT 13.1 SECONDS (11.7-14.9) 02/22/23 10:53 Pre-Assessment Diagnosis/Proposed Procedure Planned Operative Procedure(s): CSCOPE OA Anesthesia History 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 When Was Last Pacemaker Check QUESTION #4 FULL TEXT: You/Your Family Experience fever (hyperthermia) with Anesthesia Last Oral Intake Last Oral intake: Last Oral Intake NPO since 06:00 09/17/24 08:33 Meds taken in AM with sips of Yes 09/17/24 08:33 water? 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 apprentice Female Yes 09/11/24 15:24 HX of Motion Sickness Yes 09/11/24 15:24 HX of N/V After Surgery Yes 09/11/24 15:24 Non-Smoker Yes 09/11/24 15:24 Duration of Surgery greater No 09/11/24 15:24 than 60 minutes Number of Risk Factors 4 09/11/24 15:24 PONV Score Severe Risk 09/11/24 15:24 Height & Weight Height & Weight: Anesthesia: Height & Weight Height 5 ft 4 in 09/17/24 08:33 Weight: 72 kg 09/17/24 08:33 Body Mass Index (BMI) 27.2 09/17/24 08:33 Respiratory Assessment Respiratory Assessment - automobile upholsterer apprentice: Respiratory Tract Infection Hx - automobile upholsterer apprentice Hx Respiratory Tract Infection Yes: TREATED AND RESOLVING 09/11/24 15:24 Any additional information?: Yes Hx Respiratory Tract Infection: Yes (Patient has been on antibiotics. Completed a week ago.) STOP Sleep Apnea STOP Sleep Apnea - automobile upholsterer apprentice: STOP Sleep Apnea - automobile upholsterer apprentice Hx Hypertension Yes: CONTROLLED WITH MED 09/11/24 15:24 Hx Sleep Apnea No 09/11/24 15:24 CPAP BIPAP Do you snore loudly (louder No 09/11/24 15:24 than talking or can be heard Do you often feel tired/ Yes 09/11/24 15:24 fatigued/ sleepy during daytime? Has anyone observed you stop No 09/11/24 15:24 breathing during sleep? STOP Results Positive 09/11/24 15:24 QUESTION #5 FULL TEXT : Do you snore loudly (louder than talking or can be heard through closed doors)? 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 Specify any problems Hx of Preganancy in last 3 No 09/11/24 15:24 Months Nurse Filling Out Transfusion DSCHRIBER 09/11/24 15:24 & Questions: Date: 09/11/24 09/11/24 15:24 Time: 15:27 09/11/24 15:24 Patient unable to answer at this time (ie. confused, unrespo /Reproduction History /Reproductive History - automobile upholsterer apprentice: /Reproductive Hx- automobile upholsterer apprentice Hx Now No 09/11/24 15:24 Gestational Age (in weeks): EDC: Hx Hx Para Hx Section SAB No 09/11/24 15:24 [facility] Medical History Broken teeth History of IBS Heartburn History of pain when walking History of edema Wears glasses Anxiety Alcohol use Anemia Easy bruising High cholesterol Back pain Migraine headache Former smoker Normal Holter exam Hypertension Abnormal Pap smear of cervix Abnormal mammogram Home Medications ?Medication ?Instructions ?Recorded ?Last Taken ?Type buspirone 15 mg tablet 15 mg PO BID 12/12/22 History hydrochlorothiazide 50 mg tablet 50 mg PO DAILY Unknown History metoprolol succinate 100 mg 100 mg PO DAILY 12/12/22 0 09/17/24 History tablet,extended release 24 hr rosuvastatin 5 mg tablet (Crestor) 5 mg PO QHS 3 Unknown History ibuprofen 200 mg tablet 200 mg PO Q6H PRN pain 05/29 Unknown History amlodipine 5 mg tablet 5 mg PO QHS 07/02/24 Unknown History cholecalciferol (vitamin D3) 50 50 mcg PO QDAY 4 Unknown History mcg (2,000 unit) capsule cyclobenzaprine 10 mg tablet 10 mg PO TID PRN spasms 1 09/02/23 Unknown History fexofenadine 180 mg tablet 180 mg PO QDAY 07/02/24 Unk nown History (Allergy Relief (fexofenadine)) melatonin 12 mg tablet 12 mg PO QHS PRN sleep 07/02 Unknown History psyllium husk 0.4 gram capsule 0.4 g PO DAILY PRN cons tipation 07/02/24 Unknown History (Daily Fiber) scopolamine base 1 mg over 3 days 1 patch transdermal Q3D PRN motion 07/02/24 Unknown History transdermal patch sickness sumatriptan succinate 50 mg tablet See Rx Instructions PO .COMPLEX 07/02/24 Unknown History tirzepatide 10 mg/0.5 mL 10 mg subcut MO 07/02/2405/23 History subcutaneous pen injector zolpidem 12.5 mg tablet,extended 12.5 mg PO QHS insomn ia 07/02/24 Unknown History release,multiphase (Ambien CR) diphenhydramine HCl 50 mg capsule 50 mg PO QHS 5 Unknown History (Banophen) Allergy/AdvReac Type Severity Reaction Status Date / Time adhesive tape Allergy Mild blisters Verified 09/17/24 08:31 adhesive (adhesives) Allergy Blisters, Verified 09/17/24 08:31 Rash Family History Mother Hypertension Hyperlipidemia CVA (cerebral vascular accident) Colon polyp Father Hypertension Diabetes Hyperlipidemia CVA (cerebral vascular accident) Grandfather COPD (chronic obstructive pulmonary disease) Testicular cancer Diabetes Grandmother Alzheimer disease Surgical History Hx of hysterectomy, total Hx of colonoscopy S/P laparoscopy (~05/12/23) Status post hysterectomy (~03/06/23) S/P removal of ovarian cyst S/P endometrial ablation S/P LASIK (laser assisted in situ keratomileusis) S/P breast augmentation S/P tubal ligation S/P left knee surgery S/P tonsillectomy and adenoidectomy Social History household members: spouse current occupational status: employed 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
--- NOTE | 2024-09-17 09:03 | PCM.HP.STD ---
HPI - General General Date of Admission: 09/17/24 Date of Service: 09/17/24 Chief Complaint: Screening colonoscopy HPI Narrative FRIDA TORRE, is a 43 F who presents today for screening colonoscopy. She is never a colonoscopy in the past. She has a past medical history of mild hyperlipidemia, hypertension. She also has a history of mild depression. [facility] Medical History Broken teeth History of IBS Heartburn History of pain when walking History of edema Wears glasses Anxiety Alcohol use Anemia Easy bruising High cholesterol Back pain Migraine headache Former smoker Normal Holter exam Hypertension Abnormal Pap smear of cervix Abnormal mammogram Home Medications ?Medication ?Instructions ?Recorded ?Last Taken ?Type buspirone 15 mg tablet 15 mg PO BID 12/12/22 09/17/24 History hydrochlorothiazide 50 mg tablet 50 mg PO DAILY 12/12/22 Unknown History metoprolol succinate 100 mg 100 mg PO DAILY 12/12/22 09/17/24 History tablet,extended release 24 hr rosuvastatin 5 mg tablet (Crestor) 5 mg PO QHS 12/12/22 Unknown History ibuprofen 200 mg tablet 200 mg PO Q6H PRN pain 05/29/23 Unknown History amlodipine 5 mg tablet 5 mg PO QHS 07/02/24 Unknown History cholecalciferol (vitamin D3) 50 50 mcg PO QDAY 07/02/24 Unknown History mcg (2,000 unit) capsule cyclobenzaprine 10 mg tablet 10 mg PO TID PRN spasms 07/02/24 Unknown History fexofenadine 180 mg tablet 180 mg PO QDAY 07/02/24 Unknown History (Allergy Relief (fexofenadine)) melatonin 12 mg tablet 12 mg PO QHS PRN sleep 07/02/24 Unknown History psyllium husk 0.4 gram capsule 0.4 g PO DAILY PRN constipation 07/02/24 Unknown History (Daily Fiber) scopolamine base 1 mg over 3 days 1 patch transdermal Q3D PRN motion 07/02/24 Unknown History transdermal patch sickness sumatriptan succinate 50 mg tablet See Rx Instructions PO .COMPLEX 07/02/24 Unknown History tirzepatide 10 mg/0.5 mL 10 mg subcut MO 07/02/24 09/08/24 History subcutaneous pen injector zolpidem 12.5 mg tablet,extended 12.5 mg PO QHS insomnia 07/02/24 Unknown History release,multiphase (Ambien CR) diphenhydramine HCl 50 mg capsule 50 mg PO QHS 09/11/24 Unknown History (Banophen) Allergy/AdvReac Type Severity Reaction Status Date / Time adhesive tape Allergy Mild blisters Verified 09/17/24 08:31 adhesive (adhesives) Allergy Blisters, Verified 09/17/24 08:31 Rash Family History Mother Hypertension Hyperlipidemia CVA (cerebral vascular accident) Colon polyp Father Hypertension Diabetes Hyperlipidemia CVA (cerebral vascular accident) Grandfather COPD (chronic obstructive pulmonary disease) Testicular cancer Diabetes Grandmother Alzheimer disease Surgical History Hx of hysterectomy, total Hx of colonoscopy S/P laparoscopy (~05/12/23) Status post hysterectomy (~03/06/23) S/P removal of ovarian cyst S/P endometrial ablation S/P LASIK (laser assisted in situ keratomileusis) S/P breast augmentation S/P tubal ligation S/P left knee surgery S/P tonsillectomy and adenoidectomy Social History household members: spouse current occupational status: employed 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 Smoking Status: Former smoker alcohol intake: current details: occasionally substance use type: does not use caffeine: Yes what type of physical activity do you participate in: other details: elliptical frequency: 3-4 times per week seatbelt use: always do you feel safe at home: Yes 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 social history: -Art ROS Constitutional Constitutional: Denies fatigue, fever(s), poor appetite, weight gain or weight loss Gastrointestinal Gastrointestinal: Denies belching, bloating, change in bowel habits, change in stool character, chewing difficulty, coffee ground emesis, constipation, cramping, diarrhea, dyspepsia, dysphagia, early satiety, excessive flatus, fecal incontinence, heartburn, hematemesis, hematochezia, hemorrhoids, loose stools, melena, nausea, odynophagia, rectal bleeding, tenesmus, vomiting or weight changes Vital Signs Vital Signs Vital Signs: 09/17/24 08:33 09/17/24 08:33 Temperature 97 F L Temperature Source Temporal Pulse Rate 86 Respiratory Rate 16 Respiratory Pattern Normal Blood Pressure 99/80 Blood Pressure Mean 86 Blood Pressure Source Monitor Blood Pressure Position Sitting Blood Pressure Location Left Arm Pulse Ox 100 Oxygen Delivery Method Room Air Weight Weight: 158 lb 11.725 oz Body Mass Index (BMI) 27.2 Physical Exam Const alert, oriented x3 and no apparent distress General Appearance: cooperative and comfortable Resp normal respiratory effort Cardio regular rate GI normal to inspection, nondistended, normoactive bowel sounds Palpation: soft Back/Spine no CVA tenderness and thoraco-lumbar ROM normal Extremity normal to inspection, no clubbing, cyanosis or edema, no calf tenderness and no pedal edema Psych mental status grossly normal, thought process normal, cooperative, affect normal, speech normal, activity/motor behavior normal, denies homicidal ideation and denies suicidal ideation Assessment & Plan Assessment/Plan (1) Encounter for screening for malignant neoplasm of colon: PLAN: She was explained alternatives, benefits, risk including a not withstanding bleeding, infection, sepsis, perforation, need for charge and . She will have an ASA of 3.
--- NOTE | 2024-09-17 10:17 | OP.COLON_ITS ---
Patient Name: Charisma Rutherford Procedure Date: 09/17/2024 9:47 AM Date of : 1980 Age: 43 Procedure: Colonoscopy Indications: Screening for colorectal malignant neoplasm Providers: Stu Harper DO Referring MD: Stu Harper DO Medicines: Monitored Anesthesia Care Patient Profile: This is a 43 year old female. Refer to note in patient chart for documentation of history and physical. Last Colonoscopy: none. The patient's first colonoscopy is today. Complications: No immediate complications. Procedure: Pre-Anesthesia Assessment: - Prior to the procedure, a History and Physical was performed, and patient medications and allergies were reviewed. The patient is competent. The risks and benefits of the procedure and the sedation options and risks were discussed with the patient. All questions were answered and informed consent was obtained. Patient identification and proposed procedure were verified by the physician in the pre-procedure area. Mental Status Examination: alert and oriented. Airway Examination: normal oropharyngeal airway and neck mobility. Respiratory Examination: clear to auscultation. CV Examination: normal. Prophylactic Antibiotics: The patient does not require prophylactic antibiotics. Prior Anticoagulants: The patient has taken no anticoagulant or antiplatelet agents. ASA Grade Assessment: II - A patient with mild systemic disease. After reviewing the risks and benefits, the patient was deemed in satisfactory condition to undergo the procedure. The anesthesia plan was to use monitored anesthesia care (MAC). Immediately prior to administration of medications, the patient was re-assessed for adequacy to receive sedatives. The heart rate, respiratory rate, oxygen saturations, blood pressure, adequacy of pulmonary ventilation, and response to care were monitored throughout the procedure. The physical status of the patient was re-assessed after the procedure. After I obtained informed consent, the scope was passed under direct vision. Throughout the procedure, the patient's blood pressure, pulse, and oxygen saturations were monitored continuously. The Colonoscope was introduced through the anus and advanced to the cecum, identified by appendiceal orifice and ileocecal valve. The colonoscopy was performed without difficulty. The patient tolerated the procedure well. The quality of the bowel preparation was adequate. The ileocecal valve, appendiceal orifice, and rectum were photographed. Scope In: 9:58:52 AM Scope Withdrawal Time 0 hours 6 minutes 38 seconds Scope Out: 10:07:43 AM Total Procedure Duration Time 0 hours 8 minutes 51 seconds Findings: The perianal and digital rectal examinations were normal. Two small-mouthed diverticula were found in the sigmoid colon. No additional abnormalities were found on retroflexion. Impression: - Diverticulosis in the sigmoid colon. - No specimens collected. Recommendation: - Discharge patient to home. - Resume previous diet. - Continue present medications. - Repeat colonoscopy in 10 years for screening purposes. Procedure Code(s): --- Professional --- G0121, Colorectal cancer screening; colonoscopy on individual not meeting criteria for high risk CPT copyright 2021 [employer]. All rights reserved. The codes documented in this report are preliminary and upon refinish technician review may be revised to meet current compliance requirements. Stu Harper DO 09/17/2024 10:16:14 AM This report has been signed electronically. Number of Addenda: 0 Note Initiated On: 09/17/2024 9:47 AM
--- NOTE | 2024-09-17 10:17 | OP.CCLET_ITS ---
09/17/2024 Paul Moreira Re : Colonoscopy procedure for Charisma Rutherford Dear Lillie This procedure was performed on Tuesday, September 17, 2024. My impressions and recommendations are as follows: Impressions : - Diverticulosis in the sigmoid colon. - No specimens collected. Recommendations : - Discharge patient to home. - Resume previous diet. - Continue present medications. - Repeat colonoscopy in 10 years for screening purposes. My findings are described in the full procedure note, which is enclosed. If I can be of further assistance, please feel free to contact me at . Sincerely, Stu Harper, 09/17/2024 10:16:14 AM This report has been signed electronically.
--- NOTE | 2024-09-17 10:19 | PCM.POST.ANE ---
Anesthesia: Postop Eval I Current Vital Signs Temperature: 97.1 F Pulse Rate: 83 Blood Pressure: 99/77 Respiratory Rate: 16 Pulse Ox: 100 Oxygen Delivery Method: Room Air Assessment Airway patent: Yes Spontaneous unlabored respirations: Yes Mental status: Awake and Calm nausea: No Vomiting: No Anesthesia Complication: No Fluid Hydration Crystalloid volume administer (ml): 40 Total IV fluid infused: 40 Progress Note Anesthesia document: Postop Eval 1 completed: Yes
--- NOTE | 2024-09-17 11:40 | PCM.POSTANE2 ---
Anesthesia Postop Eval I Sum Postop Eval Completion status Anesthesia document: Postop Eval 1 completed: Yes Anesthesia Postop Eval I Summary Anesthesia Postop Eval I Summary: Anesthesia Postop Eval I: Assessment Summary Airway patent Yes 09/17/24 10:19 [email or web address] Spontaneous unlabored Yes 09/17/24 10:19 [email or web address] respirations Mental status Awake,Calm 09/17/24 10:19 [email or web address] nausea No 09/17/24 10:19 [email or web address] Vomiting No 09/17/24 10:19 [email or web address] Anesthesia Postop Eval I: Fluid Summary Crystalloid volume administer 40 09/17/24 10:19 [email or web address] (ml) Colloids volume administered ( ml) Blood Product volume administered (ml) Total IV fluid infused 40 09/17/24 10:19 [email or web address] Anesthesia Postop Eval I: Summary Notes Anesthesia Complication No 09/17/24 10:19 [email or web address] Anesthesia Complication Comment: Post-operative progress note Anesthesia: Postop Eval II Evaluation Mental status: Awake and Calm Pain Level: 0 nausea: No Vomiting: No
== END 2024-09-17 10:57 | disposition home or self-care (01) ==
LOC: EN 08:18 → AC 08:19
PROVIDERS: PCP Family Medicine; Referring Provider Family Medicine; Visit Provider Internal Medicine Gastroenterology
PROC: 0DJD8ZZ Inspection of Lower Intestinal Tract, Via Natural or Artificial Opening Endoscopic (ICD-10-PCS; CPT 45378; principal; 2024-09-17 09:10)
DX: Z12.11 Encounter for screening for malignant neoplasm of colon (principal); K57.30 Diverticulosis of large intestine without perforation or abscess without bleeding; I10 Essential (primary) hypertension; E78.00 Pure hypercholesterolemia, unspecified; Z79.899 Other long term (current) drug therapy; Z87.891 Personal history of nicotine dependence
CPT/HCPCS: 45378; A4216; J2405